=== PATIENT | male | born 1935 | race Caucasian/White ===

== ENCOUNTER 2022-12-17 15:07 | Observation (INO) ==
--- NOTE | 2022-12-17 15:28 | DR.URIAD ---
HPI Time Seen Time Seen by Provider: 12/17/22 15:28 HPI Comment HPI Comment: PATIENT IS 87YR OLD MALE IN ER VIA EMS WITH INCREASE SOB AND LOW O2 SAT. HE IS ALSO HAVING CHEST PAIN. HAVE HISTORY OF COPD AND CAD. HAVE HAD STENTS AND CARDIAC CATH IN THE PAST. HE IS MOVING TO [place] TO BE WITH FAMILY. DENIE SVOMITING OR DIARRHEA. Complaint Chief Complaint Doctors Comments: SOB, LOW O2 SAT AND CHEST PAIN THAT SYARTED SHORTLY BEFORE COMING TO ER. COVID-19 Coronavirus risk:travel/contact w/high risk person: No Has patient experienced Coronavirus symptoms: No Reviewed Nurses Notes Reviewed: Yes ROS Review of Systems Constitutional: Weakness and Fatigue; negative Fever Eyes: No Symptoms Reported; negative Blurred Vision ENTM: No Symptoms Reported, Nose Congestion and Mouth Pain Respiratoy: Moist Cough and Short of Breath; negative Wheezing Cardiovascular: Chest Pain and Edema Gastrointestinal/Abdominal: No Symptoms Reported; negative Abdominal Pain, Constipation, Diarrhea, Nausea or Vomiting Genitourinary: No Symptoms Reported; negative Dysuria Neurological: Weakness and Dizziness; negative Headache Musculoskeletal: No Symptoms Reported; negative Muscle Pain Integumentary: No Symptoms Reported and See HPI; negative Rash or Juandice Endocrine: No Symptoms Reported; negative Increased Thirst or Increased Urine Psychiatric: No Symptoms Reported All Other Systems: Reviewed and Negative PE Vital Signs Vitals: Temperature 98.1 F Pulse Rate 68 Respiratory Rate 11 Blood Pressure 148/68 O2 Sat by Pulse Oximetry 100 General Limitations: No Limitations General Appearance: Alert and In No Apparent Distress Head Head Exam: Normal Inspection Eyes Eye exam: Normal Appearance; negative Scleral Icterus or Conjunctival Injection ENT ENT Exam: Normal Exam, Normal Oropharynx, Normal External Ear Exam and TM's Normal Bilaterally Neck Neck Exam: Normal Inspection and Trachea Midline; negative Tenderness Chest Chest Inspection: Normal Inspection and Symmetric Chest Wall Rise; negative Tenderness Respiratory Respiratory Exam: Normal Lung Sounds Bilat, Chest Wall Tenderness and Respiratory Distress; negative Accessory Muscle Use Respiratory Exam: Bilateral: Wheezing and Bilateral: Rhonchi Cardiovascular Cardiovascular Exam: Regular Rate, Normal Rhythm and Normal Heart Sounds; negative Systolic Murmur or Diastolic Murmur Abdominal Exam Abdominal Exam: Normal Inspection, Normal Bowel Sounds and Soft; negative Tenderness Extremeties Extremities Exam: Normal Capillary Refill and Edema (TRACE) Back Back Exam: Normal Inspection; negative (R) CVA Tenderness or (L) CVA Tenderness Neurologic Neurological Exam: Alert and Oriented X3; negative Motor Sensory Deficit Psychiatric Psychiatric Exam: Normal Affect and Normal Mood Skin Skin Exam: Intact MDM Additional Information Additional Information Obtained From: Family Differential Diagnosis Differential Diagnosis: Pneumonia ([place], COPD EXACERBATION, BRONCHITIS, ANGINA.) COURSE Treatment Treatment: SEE ORDERS DONE WHILE PATIENT WAS IN ER. DISCUSSED LABS, EKG AND XRAYS WITH PATIENT. O2 IMPROVED ON OXYGEN. PATIENT IS NOT ON HOME O2. HE WILL BE ADMITTED TO HOSPITAL FOR FURTHER EVALUATION. Consultation Consultation Comments: DISCUSSED PATIENT WITH WALLS. HE WILL ADMIT PATIENT. Education/Counseling Education/Counseling: Patient Educated On: Diagnosis ROR Labs Reviewed Laboratory Results Reviewed?: Yes Result Diagrams: 12/18/22 05:28 12/18/22 05:28 Laboratory: WBC 8.3 X10^3/uL (3.6-10.0) 12/17/22 16:09 RBC 3.94 X10^6/uL (4.7-6.0) L 12/17/22 16:09 Hgb 12.8 g/dL (13.5-18.0) L 12/17/22 16:09 Hct 38.3 % (42.0-54.0) L 12/17/22 16:09 MCV 97.3 fL (80.0-100.0) 12/17/22 16:09 MCH 32.4 pg (27.0-34.0) 12/17/22 16:09 MCHC 33.3 g/dL (33.0-35.0) 12/17/22 16:09 RDW 14.4 % (11.6-16.5) 12/17/22 16:09 Plt Count 180 X10^3/uL (150.0-450.0) 12/17/22 16:09 MPV 8.0 fL (7.4-11.0) 12/17/22 16:09 Neut % (Auto) 71.4 % (42.0-75.0) 12/17/22 16:09 Lymph % (Auto) 16.7 % (21.0-51.0) L 12/17/22 16:09 [place] % (Auto) 9.4 % (0.0-13.0) 12/17/22 16:09 Eos % (Auto) 1.6 % (0.9-2.9) 12/17/22 16:09 Baso % (Auto) 0.9 % (0.2-1.0) 12/17/22 16:09 Neut # (Auto) 5.9 x10^3/uL (2.2-4.8) H 12/17/22 16:09 Lymph # (Auto) 1.4 X10^3/uL (1.3-2.9) 12/17/22 16:09 [place] # (Auto) 0.8 x10^3/uL (0.3-0.8) 12/17/22 16:09 Eos # (Auto) 0.1 x10^3/uL (0.0-0.2) 12/17/22 16:09 Baso # (Auto) 0.1 X10^3/uL (0.0-0.1) 12/17/22 16:09 Absolute Nucleated RBC 0.0 /100WBC 12/17/22 16:09 D-Dimer 0.48 ug/ml (0.0-0.57) 12/17/22 16:09 Sample Site Rrad 12/17/22 15:42 ABG pH 7.440 (7.35-7.45) 12/17/22 15:42 ABG pCO2 44.0 mmHg (35.0-45.0) 12/17/22 15:42 ABG pO2 63.0 mmHg (80.0-100.0) L 12/17/22 15:42 ABG HCO3 29.9 mmol/L (22-26) H 12/17/22 15:42 ABG O2 Saturation 93.0 % (90-100) 12/17/22 15:42 ABG Base Excess 5.1 mmol/L (-2.0-2.0) H 12/17/22 15:42 Nahid Test Pos 12/17/22 15:42 A-a Gradient 82.0 mmHg 12/17/22 15:42 FiO2 28.0 12/17/22 15:42 Blood Gas Comments Annie well ms/eb 12/17/22 15:42 Sodium 144 mmol/L (136-145) 12/17/22 16:09 Corrected Sodium 145 mmol/L (136-145) 12/17/22 16:09 Potassium 3.6 mmol/L (3.5-5.1) 12/17/22 16:09 Chloride 104 mmol/L (98-107) 12/17/22 16:09 Carbon Dioxide 32.0 mmol/L (21-32) 12/17/22 16:09 BUN 19 mg/dL (7-18) H 12/17/22 16:09 Creatinine 1.43 mg/dL (0.70-1.30) H 12/17/22 16:09 Est GFR (MDRD) Af Amer 60 (>60) 12/17/22 16:09 Est GFR (MDRD) Non-Af 49 (>60) L 12/17/22 16:09 Glucose 153 mg/dL (65-99) H 12/17/22 16:09 Calcium 9.0 mg/dL (8.5-10.1) 12/17/22 16:09 Corrected Calcium 9.7 mg/dL (8.5-10.1) 12/17/22 16:09 Total Bilirubin 0.20 mg/dL (0.2-1.0) 12/17/22 16:09 AST 15 Units/L (15-37) 12/17/22 16:09 ALT 32 Units/L (12-78) 12/17/22 16:09 Alkaline Phosphatase 87 Units/L (46-116) 12/17/22 16:09 Creatine Kinase 41 Units/L (39-308) 12/17/22 16:09 Troponin I High Sens 21.2 ng/L (4.0-60.0) 12/17/22 18:07 B-Natriuretic Peptide 33.9 pg/mL (0-79) 12/17/22 16:09 Total Protein 6.2 g/dL (6.4-8.2) L 12/17/22 16:09 Albumin 3.1 g/dL (3.4-5.0) L 12/17/22 16:09 Globulin 3.1 g/dL (2.5-4.5) 12/17/22 16:09 Albumin/Globulin Ratio 1.0 Ratio (1.1-2.1) L 12/17/22 16:09 Specimen Type Random urine 12/17/22 17:04 Urine Color Cristina (YELLOW) 12/17/22 17:04 Urine Appearance Slightly hazy (CLEAR) 12/17/22 17:04 Urine pH 5.0 (5.0 - 8.0) 12/17/22 17:04 Ur Specific [place] 1.020 (1.000-1.030) 12/17/22 17:04 Urine Protein 1+ (NEGATIVE) 12/17/22 17:04 Urine Glucose (UA) Negative (NEGATIVE) 12/17/22 17:04 Urine Ketones Negative (NEGATIVE) 12/17/22 17:04 Urine Blood 1+ (NEGATIVE) 12/17/22 17:04 Urine Nitrite Negative (NEGATIVE) 12/17/22 17:04 Urine Bilirubin Negative (NEGATIVE) 12/17/22 17:04 Urine Urobilinogen Normal (NORMAL) 12/17/22 17:04 Ur Leukocyte Esterase 1+ (NEGATIVE) 12/17/22 17:04 Urine RBC 3-5 /HPF (0-3) A 12/17/22 17:04 Urine WBC 0-2 /HPF (0-5) 12/17/22 17:04 Ur Squamous Epith Cells Rare /HPF (NEGATIVE) 12/17/22 17:04 Urine Bacteria Negative /HPF (NEGATIVE) 12/17/22 17:04 Ur Culture Indicated? No/not indicated 12/17/22 17:04 XRAY XRAY Interpreted by: Radiologist (REPORT NOTED.) and Self Opioid Opioid Risk Tool Total: 0 Total Score Risk Category: Low Risk Copyright: [employer] predicting aberrant behaviors Discharge Plan Diagnosis Discharge Problem: SOB (shortness of breath), COPD exacerbation Chest pain Qualifiers: Chest pain type: precordial pain Qualified Code(s): R07.2 - Precordial pain CAD (coronary artery disease) Qualifiers: Coronary Disease-Associated Artery/Lesion type: unspecified vessel or lesion type [place] vs. transplanted heart: lime heart Associated angina: with stable angina Qualified Code(s): I25.118 - Atherosclerotic heart disease of [place] coronary artery with other forms of angina pectoris Discharge Plan Patient Disposition: ADMITTED INPATIENT Condition: Stable
--- NOTE | 2022-12-17 15:39 | EKG ---
Test Reason : CP, SOB Blood Pressure : */* mmHG Vent. Rate : 71 BPM Atrial Rate : 71 BPM P-R Int : 196 ms QRS Dur : 94 ms QT Int : 398 ms P-R-T Axes : * -29 74 degrees QTc Int : 432 ms Atrial-paced rhythm Abnormal ECG No previous ECGs available pac. Confirmed by Stoney Russ ([id number]) on 12/18/2022 8:07:37 AM Referred By: Confirmed By: Stoney Russ
[2022-12-17 15:49] LABS: ABG BASE EXCESS 5.1 mmol/L (-2.0-2.0); ABG HCO3 29.9 mmol/L (22-26)
[2022-12-17 15:50] LABS: ABG ALLEN TEST POS
--- NOTE | 2022-12-17 16:13 | RAD ---
HISTORYShortness of breathSTUDYCHEST, 1 VIEWCOMPARISONNoneFINDINGSThe trachea is midline. The cardiac silhouette is unremarkable . A pacing device overlying the left hemithorax is observed. The lungs are clear without focal infiltrate or effusion. The bony thorax is unremarkable.IMPRESSIONNo acute cardiopulmonary disease.Electronically signed by: SOLEDAD GARCIA (December 17, 2022 16:12:55)
[2022-12-17 16:21] LABS: BASOPHILS # (AUTO) 0.1 X10^3/uL (0.0-0.1); BASOPHILS % (AUTO) 0.9 % (0.2-1.0); EOSINOPHILS # (AUTO) 0.1 x10^3/uL (0.0-0.2); EOSINOPHILS % (AUTO) 1.6 % (0.9-2.9); HEMATOCRIT 38.3 % (42.0-54.0); HEMOGLOBIN 12.8 g/dL (13.5-18.0); LYMPHOCYTES # (AUTO) 1.4 X10^3/uL (1.3-2.9); LYMPHOCYTES % (AUTO) 16.7 % (21.0-51.0); MEAN CORPUSCULAR HEMOGLOBIN 32.4 pg (27.0-34.0); MEAN CORPUSCULAR HGB CONC 33.3 g/dL (33.0-35.0); MEAN CORPUSCULAR VOLUME 97.3 fL (80.0-100.0); MONOCYTES # (AUTO) 0.8 x10^3/uL (0.3-0.8); MONOCYTES % (AUTO) 9.4 % (0.0-13.0); NEUTROPHILS # (AUTO) 5.9 x10^3/uL (2.2-4.8); NEUTROPHILS % (AUTO) 71.4 % (42.0-75.0); PLATELET COUNT 180 X10^3/uL (150.0-450.0); RED BLOOD COUNT 3.94 X10^6/uL (4.7-6.0); RED CELL DISTRIBUTION WIDTH 14.4 % (11.6-16.5); WHITE BLOOD COUNT 8.3 X10^3/uL (3.6-10.0)
[2022-12-17 16:35] LABS: ALBUMIN 3.1 g/dL (3.4-5.0); COR CA(FOR HYPOALB) 9.7 mg/dL (8.5-10.1); CREATININE 1.43 mg/dL (0.70-1.30); POTASSIUM 3.6 mmol/L (3.5-5.1); TOTAL PROTEIN 6.2 g/dL (6.4-8.2)
[2022-12-17 17:21] LABS: BILIRUBIN,URINE NEGATIVE (NEGATIVE); BLOOD/HEMOGLOBIN,URINE 1+ (NEGATIVE); GLUCOSE, URINE NEGATIVE (NEGATIVE); KETONES,URINE NEGATIVE (NEGATIVE); LEUKOCYTE ESTERASE ,URINE 1+ (NEGATIVE); NITRITES,URINE NEGATIVE (NEGATIVE); PROTEIN,URINE 1+ (NEGATIVE); UROBILINOGEN,URINE NORMAL (NORMAL)
[2022-12-17 17:28] LABS: COLOR,URINE AMBER (YELLOW)
[2022-12-17 17:29] LABS: APPEARANCE,URINE SLIGHTLY HAZY (CLEAR)
[2022-12-17 17:36] LABS: SQUAMOUS EPITHELIAL CELL,UR RARE /HPF (NEGATIVE)
[2022-12-17 17:37] LABS: BACTERIA,URINE NEGATIVE /HPF (NEGATIVE)
[2022-12-17] MEDS ORDERED: NITROSTAT SL SCH (20:31)
[2022-12-17] MEDS ORDERED: LIORESAL PO PRN (20:31)
[2022-12-17] MEDS ORDERED: ROXICODONE TAB 5 MG PO PRN ×2 (20:45→21:00)
[2022-12-17] MEDS: NS 1,000 ML IV 1,000 ML IV SCH (21:18)
[2022-12-17] MEDS: NEURONTIN CAP 400 MG PO SCH (21:18)
[2022-12-17] MEDS: ELIQUIS PO SCH (21:18)
[2022-12-17 21:20] VITALS: BMI 26.5
[2022-12-18] MEDS: NEURONTIN CAP 400 MG PO SCH ×2 (05:17→13:34)
[2022-12-18] MEDS: FERROUS GLUCONATE PO SCH ×2 (05:17→13:34)
[2022-12-18 06:05] LABS: BASOPHILS # (AUTO) 0.1 X10^3/uL (0.0-0.1); BASOPHILS % (AUTO) 0.7 % (0.2-1.0); EOSINOPHILS # (AUTO) 0.2 x10^3/uL (0.0-0.2); EOSINOPHILS % (AUTO) 2.1 % (0.9-2.9); HEMATOCRIT 36.5 % (42.0-54.0); HEMOGLOBIN 12.5 g/dL (13.5-18.0); LYMPHOCYTES # (AUTO) 1.8 X10^3/uL (1.3-2.9); LYMPHOCYTES % (AUTO) 21.3 % (21.0-51.0); MEAN CORPUSCULAR HEMOGLOBIN 32.8 pg (27.0-34.0); MEAN CORPUSCULAR HGB CONC 34.1 g/dL (33.0-35.0); MEAN CORPUSCULAR VOLUME 96.2 fL (80.0-100.0); MEAN PLATELET VOLUME 8.4 fL (7.4-11.0); MONOCYTES # (AUTO) 0.9 x10^3/uL (0.3-0.8); MONOCYTES % (AUTO) 10.7 % (0.0-13.0); NEUTROPHILS # (AUTO) 5.5 x10^3/uL (2.2-4.8); NEUTROPHILS % (AUTO) 65.2 % (42.0-75.0); PLATELET COUNT 174 X10^3/uL (150.0-450.0); RED CELL DISTRIBUTION WIDTH 14.5 % (11.6-16.5); WHITE BLOOD COUNT 8.5 X10^3/uL (3.6-10.0)
[2022-12-18 06:10] LABS: INR 1.11 (0.8-1.3)
[2022-12-18 06:26] LABS: ALANINE AMINOTRANSFERASE 28 Units/L (12-78); ALBUMIN 2.8 g/dL (3.4-5.0); ALKALINE PHOSPHATASE 80 Units/L (46-116); ASPARTATE AMINO TRANSFERASE 15 Units/L (15-37); BLOOD UREA NITROGEN 19 mg/dL (7-18); CALCIUM 8.3 mg/dL (8.5-10.1); CARBON DIOXIDE 27.3 mmol/L (21-32); CHLORIDE 108 mmol/L (98-107); CHOL/HDL RATIO 2.3 (0.0-5.0); CHOLESTEROL 125 mg/dL (0-200); COR CA(FOR HYPOALB) 9.3 mg/dL (8.5-10.1); CREATINE KINASE 37 Units/L (39-308); GLUCOSE 90 mg/dL (65-99); HDL CHOLESTEROL 54 mg/dL (40-60); POTASSIUM 3.9 mmol/L (3.5-5.1); SODIUM 143 mmol/L (136-145); TOTAL PROTEIN 5.7 g/dL (6.4-8.2); TRIGLYCERIDES 126 mg/dL (0-150); eGFR NON BLACK RACES 55 (>60)
[2022-12-18] MEDS: ELIQUIS PO SCH (08:30)
[2022-12-18] MEDS ORDERED: SYNTHROID 125 mcg TAB PO SCH (09:00)
[2022-12-18] MEDS ORDERED: PROTONIX TAB 40 MG PO SCH (09:00)
[2022-12-18] MEDS ORDERED: PROVENTIL NEB TX 0.083% 2.5MG/ 3ML NEB SCH (09:00)
[2022-12-18] MEDS ORDERED: PATIENT'S HOME MEDICATION (Fluticasone-Umeclidin-Vilanter [Trelegy Ellipta] 100-62.5-25 mc IN SCH (09:00)
[2022-12-18] MEDS ORDERED: MIRALAX POWDER (255 GRAMS BTL) PO SCH (09:00)
[2022-12-18] MEDS ORDERED: PREDNISONE TAB 10 MG PO SCH (09:00)
[2022-12-18] MEDS ORDERED: REFLEX: PROVENTIL NEB & PulmiCORT NEB~ NEB SCH (09:00)
[2022-12-18] MEDS ORDERED: PULMICORT NEB TX 0.5 MG NEB SCH (09:00)
[2022-12-18] MEDS ORDERED: LIPITOR TAB 40 MG PO SCH (09:00)
[2022-12-18 12:09] VITALS: BP 126/77
[2022-12-18] MEDS: NS 1,000 ML IV 1,000 ML IV SCH (12:09)
== END 2022-12-18 14:17 | disposition home or self-care (01) ==
LOC: MED/SURG 15:07 → ER 15:07 → MED/SURG 20:07
PROVIDERS: ADMIT Obstetrics & Gynecology Obstetrics; ATTEND Obstetrics & Gynecology Obstetrics